=== PATIENT | male | born 1975 ===

== ENCOUNTER 2024-01-16 17:16 | Emergency (ER) | payer OTHER, SELFPAY ==
[2024-01-16 17:25] VITALS: BP 90/60
--- NOTE | 2024-01-16 17:48 | ED.GENMED ---
History of Present Illness
General
Chief Complaint: Abdominal Pain
Time Seen by Provider: 01/16/24 17:39
Travel History
Have you had any contact with someone who has COVID-19?: No
Do you have any symptoms of coronavirus? Fever > 100 degrees, chills, cough, shortness of breath, sore throat, loss of taste or smell, muscle aches, or headache?: No
History of Present Illness
History of Present Illness:
48-year-old male history of lupus presenting with bilateral lower abdominal pain starting when he woke up this morning around 9 AM. Patient denies nausea, vomiting, diarrhea, dysuria, or hematuria. Patient states that he had a normal bowel
movement earlier today. Patient states that he has had unilateral pain but never bilateral pain before. No history of any abdominal surgeries.
Phy Exam
Physical Exam
Physical Exam:
General: Alert, no acute distress
Head: NCAT
Eyes: clear conjunctiva
Neck: supple
Cardiac: regular rate and rhythm, no murmur
Lungs: clear to auscultation bilaterally. No wheezes, rales, or rhonchi. Speaking full unlabored sentences. No respiratory distress.
Abdomen: soft, nondistended, right lower quadrant, suprapubic, left lower quadrant tenderness to palpation. No rebound or guarding.
MSK: no lower extremity edema bilaterally. No deformity
Skin: warm, dry
Neuro: Alert and oriented x3. no focal deficits
Course
Orders/Labs/Results
Orders:
Orders
01/16/24 17:46
Ketorolac [Toradol] 15 mg IV NOW STA
01/16/24 17:47
CT Abd/Pel (IV only)-DH only Urgent
Comment:
Reason For Exam: bilateral lower abdominal tenderness
01/16/24 17:55
Complete Blood Count/With Diff Urgent
Comprehensive Metabolic Panel Urgent
Lipase Urgent
01/16/24 18:11
Urinalysis Reflex To Culture Urgent
Date Specimen was Collected: 01/16/24
Time Specimen was Collected: 18:10
Abnormal Lab Results
01/16/24 01/16/24
17:55 18:11
WBC 4.6 L 10^3/uL
(4.8-10.8)
MCHC 37.4 H g/dL
(33.0-37.0)
Monocytes % 10.6 H %
(1.7-9.3)
Urine Ketones Trace A
(Negative)
01/16/24 17:55
01/16/24 17:55
Vital Signs
Initial and Last Documented VS:
Initial Vital Signs
Temp Pulse Resp BP Pulse Ox
98.2 F 85 16 90/60 97
01/16/24 17:25 01/16/24 17:25 01/16/24 17:25 01/16/24 17:25 01/16/24 17:25
Last Documented Vital Signs
Temp Pulse Resp BP Pulse Ox
98.2 F 66 18 121/86 100
01/16/24 17:25 01/16/24 20:32 01/16/24 20:32 01/16/24 20:32 01/16/24 20:32
MDM/Problems Addressed
MDM/Problems Addressed:
Patient presents to the Emergency Department with ___lower abdominal pain
Number and Complexity of Problems Addressed at the Encounter
� Chronic conditions affecting care:
� Acute Exacerbation and/or Progression of Chronic Illness:
� Differential Diagnosis includes: Appendicitis, diverticulitis, kidney stone, UTI
Amount and/or Complexity of Data to be Reviewed and Analyzed
� I performed an independent evaluation of and my interpretation is:
EKG:
CT:
Xrays:
Laboratory Studies: labs unremarkable. UA shows no UTI
Other:
� Review of other/old records reveals:
� Clinical information was obtained by an independent historian:
� Prescriptions/Medications Considered but not given:
� Further testing considered but not performed:
Risk of Complications and/or Morbidity or Mortality of Patient Management
� Social Determinants of health affecting care:
� Discussion with other providers (PCP, Hospitalists, Consultants, etc):
� Escalation of care including admission/observation vs risk of discharge considered: 48yoM presenting with nonradiating lower abdominal pain starting this morning with no nausea, vomiting, diarrhea, or urinary symptoms. Patient states last bowel
movement was today. Labs unremarkable, UA shows no UTI. CT abdomen/pelvis shows 1. Mild circumferential wall thickening throughout the descending colon, sigmoid colon, and rectum suspicious for a mild colitis. This appearance could also be
secondary to underdistention of the bowel lumen.
2. Mild hepatomegaly.
3. 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
4. 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
Given no nausea, vomiting, or diarrhea, low suspicion for colitis. More likely underdistention of bowel lumen. Patient reports improvement in symptoms. Discussed results with patient at bedside. Vitals stable. Will discharge with PCP follow up
*Critical Care Note
Total Time (30-74mins, 75-104mins- exclusive of procedures): Not Applicable
ED Attending Note
-
Portions of this chart may have been created with voice recognition software.� Occasional wrong word or��sound alike� substitutions may have occurred due to the inherent limitations of voice recognition software.
Discharge Plan
Departure
Patient Disposition: Home (Routine Discharge)
Date of Disposition: 01/16/24
Time of Disposition: 20:21
Patient with high blood pressure during this ER visit?: No
Discharge Problem:
Abdominal pain, lower
Instructions: Abdominal Pain
Referrals:
UNKNOWN - PT DOES,NOT KNOW [Family Provider] -
Activity Restrictions/Additional Instructions:
Take tylenol 975mg every 6 hours and/or ibuprofen 800mg every 8 hours with food as needed for pain
Follow up with primary care doctor in 1-2 days
Return to the emergency department for fever, diarrhea, or new/worsening symptoms
Interventions
Interventions:
*Risk Screen - Suicide Last Done: 01/16/24 17:25
*General Assessment Last Done: 01/16/24 18:00
*Neglect/Abuse Screening Last Done: 01/16/24 17:25
ED- Fall Risk Assessment Last Done: 01/16/24 20:36
*ED COVID-19 Vaccine History Last Done: 01/16/24 17:25
*Nursing Disposition Last Done: 01/16/24 20:36
WN-Mcje[facility]-Jdhxjhgjpp Assessment Last Done: 01/16/24 17:56
Discharge Date and Time
Discharge Date/Time: 01/16/24 20:38
Print Language: DANISH
[2024-01-16] MEDS: TORADOL 15 MG IV (17:56)
[2024-01-16 18:07] LABS: % Basophils 0.4 % (0-2); % Eosinophils 0.6 % (0-6); % Lymphocytes 25.9 % (20.5-51.1); % Monocytes 10.6 % (1.7-9.3); % Neutrophils 62.5 % (42.2-75.2); Absolute Lymphocytes 1.2 10^3/uL (1.2-3.4); Absolute Monocytes 0.5 10^3/uL (0.1-0.6); Absolute Neutrophils 2.9 10^3/uL (1.4-6.5); Hematocrit 39.3 % (39.0-52.0); Hemoglobin 14.7 g/dL (13.0-18.0); Mean Corp Hgb Conc. 37.4 g/dL (33.0-37.0); Mean Corpuscular Hgb 30.1 pg (27.0-31.0); Mean Corpuscular Volume 80.4 fL (80.0-94.0); Mean Platelet Volume 9.4 fL (7.4-10.4); Nucleated Red Blood Cells % 0 % (-); Platelet Count 191 10^3/uL (130-400); Red Blood Cell Count 4.89 10^6/uL (4.70-6.10); Red Cell Dist. Width 13.2 % (11.5-14.5); White Blood Cell Count 4.6 10^3/uL (4.8-10.8)
[2024-01-16 18:22] LABS: ALT (SGPT) 16 U/L (0-50); AST (SGOT) 24 U/L (17-59); Albumin 4.7 g/dl (3.5-5.0); Alkaline Phosphatase 42 U/L (38-126); Blood Urea Nitrogen 15 mg/dl (9-20); Calcium 9.7 mg/dl (8.4-10.2); Carbon Dioxide 30 mmol/L (22-30); Chloride 103 mmol/L (98-107); Glucose 84 mg/dl (70-99); Lipase 36 U/L (23-300); Potassium 4.2 mmol/L (3.5-5.1); Sodium 140 mmol/L (135-145); Total Bilirubin 0.9 mg/dl (0.2-1.3); Total Protein 7.1 g/dl (6.3-8.2); eGFR > 60.00
[2024-01-16 18:25] LABS: Urine Albumin Negative (Neg - Trace); Urine Bilirubin Negative (Negative); Urine Character Clear (Clear); Urine Color Amber; Urine Glucose Negative (Negative); Urine Ketone Trace (Negative); Urine Leukocyte Negative (Negative); Urine Nitrite Negative (Negative); Urine Occult Blood Negative (Negative); Urine Specific Gravity 1.025 (<1.030); Urine Urobilinogen Negative (Neg - 1+)
[2024-01-16 20:32] VITALS: BP 121/86
== END 2024-01-16 20:38 | disposition home or self-care (01) ==
LOC: EMR 17:16
PROVIDERS: EMERGENCY PHYSICIAN Emergency Medicine
DX: R10.32 Left lower quadrant pain (principal); R10.31 Right lower quadrant pain; M32.9 Systemic lupus erythematosus, unspecified; R16.0 Hepatomegaly, not elsewhere classified; E88.2 Lipomatosis, not elsewhere classified; M51.37 Other intervertebral disc degeneration, lumbosacral region; Z91.048 Other nonmedicinal substance allergy status
CPT/HCPCS: 99285; 96374; 74177; 80053; 81003; 83690; 85025; Q9967